=== PATIENT | female | born 1965 | race Caucasian/White ===

== ENCOUNTER 2022-12-13 11:21 | Day surgery (SDC) | payer BC ==
[2022-12-13] MEDS ORDERED: Lactated Ringers 1,000 ML IV SCH (11:30)
[2022-12-13] MEDS ORDERED: DIPRIVAN 200 MG/20 ML IV ONE ×4 (12:45→13:45)
[2022-12-13] MEDS ORDERED: Versed 2 MG/2 ML Injection ONE (12:45)
[2022-12-13] MEDS ORDERED: Xylocaine-Mpf 2% 5 Ml Vial ONE (12:47)
[2022-12-13 14:51] VITALS: BP 135/76; PULSE 44; O2SAT 94
--- NOTE | 2022-12-15 08:09 | OP ---
PROCEDURE DATE/TIME: 12/13/2022 1253 PREOPERATIVE DIAGNOSIS: Screening. POSTOPERATIVE DIAGNOSIS: Multiple polyps and diverticulosis. PROCEDURES: 1) Colonoscopy with hot snare polypectomy 2) Cold snare polypectomy. 3) Cold forceps polypectomy. PROCEDURE PERFORMED BY: Daly Rahman M.D. ANESTHESIA: MAC. ESTIMATED BLOOD LOSS: Minimal. COMPLICATIONS: None. SPECIMENS: Transverse colon polyp, splenic flexure polyps x2, descending colon polyps x3. PROCEDURE DETAILS: This is a 57-year-old female who presents for screening colonoscopy. Risks, benefits, alternatives, H&P and consent have all been discussed with her in detail. Any remaining questions answered. She agrees, understands and would like to proceed. DESCRIPTION OF PROCEDURE: The patient was then brought to the endoscopy suite and laid in left lateral decubitus position. A complete time out performed. First, a rectal exam was done. We then inserted the scope and gently advanced the scope to the cecum. The patient has some hemorrhoidal tissue and no mass of concern identified. Overall the prep was good. The cecum was clearly identified identifying the appendiceal orifice and the ileocecal valve and then the scope was then carefully withdrawn taking a circumferential view and irrigating liquid stool that was identified. Six total polyps were identified and were taken as follows: There was a transverse colon polyp approximately 6 to 7 mm in size semi-sessile taken with hot snare. There was a splenic flexure polyp approximately 3 to 4 mm in size semi-sessile taken with hot snare. An additional splenic flexure polyp approximately 3 mm in size taken with cold snare and then three descending colon polyps all 2 to 3 mm in size two taken with cold snare and then one taken with cold forceps. All polyps were removed in entirety. All sites were hemostatic after polypectomy. One clip was placed at the polypectomy site for good hemostasis and there was no bleeding after this was done. Clips looked in good position. Diverticulosis throughout the entire left colon was noted extending into the transverse colon and outside of this no other concerning findings. The patient tolerated the procedure very well. There were no immediate complications. The polyps all appeared benign on gross evaluation. We will await the final pathology report. We will still plan for colonoscopy in three years due to the number of polyps. I have also recommended a well-balanced diet, increasing water intake and insuring appropriate fiber in the diet. I have discussed this with her family in the post-operative area and she will be following up with me as an outpatient to discuss the final pathology and any change to recommendations based on this.
== END 2022-12-13 15:05 | disposition home or self-care (01) ==
LOC: SDC 11:21
PROVIDERS: ATTEND Surgery
DX: Z12.11 Encounter for screening for malignant neoplasm of colon (principal); K63.5 Polyp of colon; K57.30 Diverticulosis of large intestine without perforation or abscess without bleeding; K64.8 Other hemorrhoids
CPT/HCPCS: 88305; J2250; J2704